=== PATIENT | male | born 1940 | race Two or more races ===

== ENCOUNTER 2017-02-20 20:31 | Emergency (ER) | payer SELFPAY ==
[~2017-02-20] VITALS: Ht 167.6 cm; Wt 77.1 kg
--- NOTE | 2017-02-20 20:35 | NUR ---
PT ALBINO TO ER BED 14. POSSIBLE ETOH. FOUND IN A SIDEWALK W/ 2 EMPTY VODKA BOTTLES. NO OBVIOUS TRAUMA. LETHARGIC PLACED ONM MONITOR. AROUSABLE, ESTONIAN SPEAKING, BG IN THE FIELD WAS 104 MG/DL. AWAITING MD VILCHIS.
[2017-02-20] MEDS ORDERED: IV NS 0.9% 1,000 ML ONE (20:37)
[2017-02-20] MEDS ORDERED: IV SET PRIMARY 1 EA INFUS.SET MC ONE (20:37)
--- NOTE | 2017-02-20 20:37 | NUR ---
ACCUCHECK 101 MG/DL CONCRETE BLOCK MASON.
--- NOTE | 2017-02-20 20:45 | NUR ---
REPROGRAPHICS ASSOCIATE AT BEDSIDE FOR BLOOD DRAW.
[2017-02-20 20:52] LABS: BASOPHILS % (AUTO) 0.1 % (0.0-2.0); EOSINOPHILS # (AUTO) 0.2 /CMM (0.0-0.7); EOSINOPHILS % (AUTO) 4.1 % (0.0-6.0); HEMATOCRIT 30 % (39-51); HEMOGLOBIN 9.4 g/dL (13.5-17.5); LYMPHOCYTES # (AUTO) 2.4 /CMM (0.8-4.8); LYMPHOCYTES % (AUTO) 48.7 % (20.0-44.0); MEAN CORPUSCULAR HEMOGLOBIN 19 PG (26.0-33.0); MEAN CORPUSCULAR HGB CONC 31 g/dl (31.0-36.0); MEAN CORPUSCULAR VOLUME 63 fL (80-96); MONOCYTES # (AUTO) 0.3 /CMM (0.1-1.30); MONOCYTES % (AUTO) 5.5 % (2.0-12.0); NEUTROPHILS % (AUTO) 41.6 % (43.0-81.0); PLATELET COUNT (AUTO) 273 /CMM (150-450); RDW COEFFICIENT OF VARIATION 17.9 (11.5-15.0); RED BLOOD CELL COUNT(AUTO) 4.86 MIL/uL (4.5-6.0); WHITE BLOOD COUNT (AUTO) 4.9 K/uL (4.3-11.0)
[2017-02-20] MEDS ORDERED: IV NS 0.9% 1,000 ML BAG IV ONE (21:00)
[2017-02-20 21:02] LABS: CALCIUM, SERUM 8.3 mg/dL (8.5-10.1); CREATININE 0.8 mg/dL (0.6-1.3); POTASSIUM 3.9 mmol/L (3.5-5.1)
[2017-02-20 21:25] LABS: NEUTROPHILS % (MANUAL) 41 (42-76)
[2017-02-20 21:26] LABS: BAND % (MANUAL) 3 % (0.0-5.0); EOSINOPHILS % (MANUAL) 2 % (0-4); LYMPHOCYTES % (MANUAL) 52 % (16-48); MONOCYTES % (MANUAL) 2 % (0-11.0)
[2017-02-20] MEDS ORDERED: IV SET PRIMARY PUMP SET 1 EA INFUS.SET MC ONE (21:38)
--- NOTE | 2017-02-21 00:07 | NUR ---
report to charge nurse roger for luiz.
--- NOTE | 2017-02-21 02:16 | NUR ---
PT RESTING IN GURNEY, NO SIGNS OF DISTRESS NOTED. PT EASILY AROUSABLE. PT VITAL SIGNS STABLE. WILL CONT TO MONITOR PT.
--- NOTE | 2017-02-21 05:10 | NUR ---
PT REQUESTING TO BE DISCHARGED HOME. PT OK TO BE DISCHARGED PER DR DEMPSEY. IV removed. Catheter intact and site benign. Pressure and 4x4 applied to site. No bleeding noted.Patient discharged to home in stable condition. Written and verbal after care instructions given. Patient verbalizes understanding of instruction.Patient is awake and alert to self, day, and place. PT ambulatory with a steady gait
[2017-02-21 05:41] VITALS: BP 115/65
== END 2017-02-21 05:41 | disposition home or self-care (01) ==
LOC: ER 20:34
DX: F10.129 Alcohol abuse with intoxication, unspecified (principal)
CPT/HCPCS: 36415; 80048-TC; 85025-TC; A4606; G0480; J7030; Z7610